=== PATIENT | female | born 1970 | race American Indian/Alaskan Native ===

== ENCOUNTER 2022-05-29 05:06 | Emergency (ER) | payer OTHER ==
[2022-05-29] MEDS ORDERED: ASPIRIN 325 MG TAB PO ONE (05:18)
[2022-05-29 05:32] LABS: Basophils % (Auto) 0.6 % (0.0-1.8); Eosinophils # (Auto) 0.1 K/mm3 (0.0-0.4); Eosinophils % (Auto) 1.5 % (0.0-4.3); Hematocrit 44.6 % (30.3-42.9); Hemoglobin 14.2 gm/dl (10.1-14.3); Lymphocytes # (Auto) 1.1 K/mm3 (1.2-5.4); Lymphocytes % (Auto) 26.4 % (13.4-35.0); Mean Corpuscular HGB Conc 32 % (30-34); Mean Corpuscular Volume 87 fl (79-97); Monocytes # (Auto) 0.6 K/mm3 (0.0-0.8); Monocytes % (Auto) 14.1 % (0.0-7.3); Platelet Count 247 K/mm3 (140-440); Red Blood Count 5.14 M/mm3 (3.65-5.03); Red Cell Distribution Width 14.8 % (13.2-15.2)
[2022-05-29 05:40] LABS: INR 0.85 (0.87-1.13)
[2022-05-29 05:41] LABS: Partial Thromboplastin Time 32.4 Sec. (24.2-36.6)
[2022-05-29 05:45] VITALS: BP 124/72
--- NOTE | 2022-05-29 05:46 | XRay Report ---
CHEST 2 VIEWS INDICATION / CLINICAL INFORMATION: chest pain. COMPARISON: None available. FINDINGS: SUPPORT DEVICES: None. HEART / MEDIASTINUM: No significant abnormality. LUNGS / PLEURA: No significant pulmonary or pleural abnormality. No pneumothorax. ADDITIONAL FINDINGS: No significant additional findings. IMPRESSION: 1. No acute findings. Signer Name: Bre Clayton MD Signed: 05/29/2022 5:42 AM Workstation Name: [id number]
[2022-05-29 05:55] LABS: Alanine Aminotransferase 17 units/L (7-56); Albumin 4.3 g/dL (3.9-5); BUN/Creatinine Ratio 21; Blood Urea Nitrogen 19 mg/dL (7-17); Calcium 9.9 mg/dL (8.4-10.2); Hemolysis Index 11
--- NOTE | 2022-05-29 09:35 | Electrocardiograph Report ---
[facility] Test Date: 2022-05-29 Test Time: 05:15:38 Pat Name: GIAN LINCOLN Department: Room: Gender: F [employer] Super[employer]: HANK : 1970 Requested By: ED DOC Order Number: [id number] Reading MD: Abram Larsen Measurements Intervals [place] Rate: 70 P: 70 MS: 146 QRS: -34 QRSD: 72 T: 1 QT: 380 QTc: 410 Interpretive Statements Sinus rhythm nonspecific st-t No previous ECG available for comparison Electronically Signed On 05-29-2022 9:34:57 EDT by Abram Larsen
== END 2022-05-29 19:00 | disposition left against medical advice (07) ==
LOC: ED 05:06
DX: R07.9 Chest pain, unspecified (principal); Z53.21 Procedure and treatment not carried out due to patient leaving prior to being seen by health care provider
CPT/HCPCS: 36415; 71046; 80053; 84484; 85025; 85610; 85730; 93005